=== PATIENT | male | born 1945 | race Caucasian/White ===

== ENCOUNTER 2018-09-02 16:42 | Emergency (ER) | payer SELFPAY ==
[~2018-09-02] VITALS: Ht 165.1 cm; Wt 90.0 kg
[2018-09-02 20:44] VITALS: BP 140/74
== END 2018-09-02 20:46 | disposition home or self-care (01) ==
LOC: ER 16:42
DX: S00.03XA Contusion of scalp, initial encounter (principal); F10.129 Alcohol abuse with intoxication, unspecified; E11.9 Type 2 diabetes mellitus without complications; W18.39XA Other fall on same level, initial encounter; Y93.89 Activity, other specified; Y92.89 Other specified places as the place of occurrence of the external cause; Y99.8 Other external cause status; Y90.9 Presence of alcohol in blood, level not specified
CPT/HCPCS: 99284

== ENCOUNTER 2019-02-04 11:24 | Inpatient (IN) | payer OTHER, MEDICAID ==
[~2019-02-04] VITALS: Ht 172.7 cm; Wt 82.3 kg
[2019-02-04] MEDS ORDERED: SODIUM CHLORIDE 0.9% 1,000 ML IV ONE ×2 (12:08→15:46)
[2019-02-04 12:09] LABS: BASOPHILS % 0.4 % (0.0-2.0); EOSINOPHILS % 0.2 % (0.0-5.0); HEMATOCRIT. 49.1 % (42.0-52.0); HEMOGLOBIN. 16.9 g/dL (14.0-18.0); LYMPHOCYTES % 21.8 % (20.0-50.0); MEAN CORPUSCULAR HEMOGLOBIN 32.2 pg (28.0-32.0); MEAN CORPUSCULAR VOLUME 93.4 fL (80.0-94.0); MEAN PLATELET VOLUME 8.3 fl (7.4-10.4); MONOCYTES % 5.8 % (2.0-8.0); NEUTROPHILS % 71.8 % (40.0-76.0); PLATELET 206 x1000/uL (130-400); RED BLOOD CELL COUNT 5.26 mill/uL (4.7-6.1); RED CELL DISTRIBUTION WIDTH 13.4 % (11.6-14.6)
[2019-02-04 12:15] LABS: CHLORIDE 104 mEq/L (98-107)
[2019-02-04] MEDS ORDERED: FAMOTIDINE 20MG/2ML VIAL IV ONE (12:15)
[2019-02-04] MEDS ORDERED: ONDANSETRON HCL 4MG/2ML INJ IV ONE (12:15)
[2019-02-04 12:19] LABS: ETHANOL BLOOD 82 mg/dL
[2019-02-04 12:20] LABS: INR 1.1; PROTHROMBIN TIME 11.3 sec (9.6-11.0)
[2019-02-04 12:44] LABS: CLARITY URINE CLEAR (CLEAR); COLOR URINE DARK YELLOW (YELLOW); KETONES URINE 2+ (NEGATIVE); LEUKOCYTE ESTERASE URINE TRACE (NEGATIVE); NITRITE URINE NEGATIVE (NEGATIVE); OCCULT BLOOD URINE 1+ (NEGATIVE); PROTEIN URINE 2+ (NEGATIVE); SPECIFIC GRAVITY URINE 1.024 (1.005-1.030)
[2019-02-04 13:16] LABS: *AMPHETAMINES SCREEN URINE NEGATIVE (NEGATIVE); CANNABINOID URINE SCREEN NEGATIVE (NEGATIVE); METHADONE URINE SCREEN NEGATIVE (NEGATIVE); OPIATES URINE SCREEN NEGATIVE (NEGATIVE); PHENCYCLIDINE URINE SCREEN NEGATIVE (NEGATIVE)
[2019-02-04 13:17] LABS: *BARBITURATES SCREEN URINE NEGATIVE (NEGATIVE); *BENZODIAZEPINES SCREEN URINE NEGATIVE (NEGATIVE); *COCAINE SCREEN URINE NEGATIVE (NEGATIVE)
[2019-02-04 16:23] LABS: CREATINE KINASE 118 IU/L (39-308)
[2019-02-04 16:24] LABS: CREATINE KINASE MB FRACTION 2.9 ng/mL (0.5-3.6)
[2019-02-04] MEDS ORDERED: METRONIDAZOLE 500 MG PREMIX 100 ML IV ONE (17:00)
[2019-02-04] MEDS ORDERED: LEVOFLOXACIN 500MG PREMIX 100 ML IV ONE (17:00)
[2019-02-04] MEDS ORDERED: LORAZEPAM 2MG/ML CPJ IV ONE ×2 (17:30→17:45)
[2019-02-04] MEDS ORDERED: ACETAMINOPHEN 325MG TABLET PO PRN (17:45)
[2019-02-04] MEDS ORDERED: GUAIFENESIN 200MG/10ML SUGAR FREE UDC PO PRN (17:45)
[2019-02-04] MEDS ORDERED: HYDROCODONE/ACETAMINOPHEN 5/325MG TABLET PO PRN (17:45)
[2019-02-04] MEDS ORDERED: ACETAMINOPHEN 650MG SUPP PR PRN (17:45)
[2019-02-04] MEDS ORDERED: DOCUSATE SODIUM 100MG CAPSULE PO PRN (17:45)
[2019-02-04] MEDS ORDERED: ONDANSETRON HCL 4MG/2ML INJ IV PRN (17:45)
[2019-02-04] MEDS ORDERED: HYDRALAZINE 20MG/ML VIAL IV ONE (17:45)
[2019-02-04] MEDS ORDERED: MAGNESIUM/ALUMINUM HYDROXIDE/SIMETHICONE 30ML UDC PO PRN (17:45)
[2019-02-04] MEDS ORDERED: METOPROLOL TARTRATE 50MG TABLET PO NR (17:45)
[2019-02-04] MEDS ORDERED: IPRATROPIUM/ALBUTEROL 0.5-3(2.5)MG/3ML NEB INH PRN (17:45)
[2019-02-04] MEDS ORDERED: METOPROLOL TARTRATE 25MG TABLET PO NR (17:45)
[2019-02-04] MEDS ORDERED: SODIUM CHLORIDE 0.45% 1,000 ML IV SCH (17:45)
[2019-02-04] MEDS ORDERED: DIPHENHYDRAMINE 50MG/ML VIAL IV PRN (17:45)
[2019-02-04] MEDS ORDERED: DEXTROSE 50% WATER 50ML SYRINGE IV PRN (18:00)
[2019-02-04] MEDS: METRONIDAZOLE 500 MG PREMIX 100 ML IV SCH (19:00)
[2019-02-04 19:21] LABS: HEPATITIS B SURFACE ANTIGEN NEGATIVE
[2019-02-04 19:51] LABS: HEPATITIS A AB IGM NEGATIVE (NEGATIVE)
[2019-02-04] MEDS ORDERED: LEVOFLOXACIN 500MG PREMIX 100 ML IV SCH (20:00)
[2019-02-04] MEDS ORDERED: NA PHOS,M-B/NA PHOS,DI-BA ENEMA 118ML PR PRN (21:00)
[2019-02-04 22:30] VITALS: BP 140/74
[2019-02-04] MEDS: BLOOD SUGAR DIAGNOSTIC STRIP TEST SCH (23:15)
[2019-02-04] MEDS: CHLORDIAZEPOXIDE 25MG CAPSULE PO SCH (23:16)
[2019-02-04] MEDS: INSULIN LISPRO 100 UNITS/ML SUBCUT SCH (23:16)
[2019-02-04] MEDS: FAMOTIDINE 20MG/2ML VIAL IV SCH (23:23)
[2019-02-05] VITALS: BP 156/86
[2019-02-05] MEDS: MVI, ADULT NO.1 10 ML, FOLIC ACID 1 MG, THIAMINE HCL 100 MG in SODIUM CHLORIDE 0.45% 1,... IV SCH ×4 (00:27)
[2019-02-05] MEDS: METRONIDAZOLE 500 MG PREMIX 100 ML IV SCH ×3 (01:26→21:00)
[2019-02-05 04:00] VITALS: BP 145/94
[2019-02-05] MEDS: CHLORDIAZEPOXIDE 25MG CAPSULE PO SCH ×3 (05:59→23:44)
[2019-02-05] MEDS: BLOOD SUGAR DIAGNOSTIC STRIP TEST SCH ×4 (06:04→21:00)
[2019-02-05] MEDS: INSULIN LISPRO 100 UNITS/ML SUBCUT SCH ×4 (06:15→23:13)
[2019-02-05 06:19] LABS: BASOPHILS % 0.2 % (0.0-2.0); EOSINOPHILS % 0.7 % (0.0-5.0); HEMATOCRIT. 42.3 % (42.0-52.0); HEMOGLOBIN. 14.9 g/dL (14.0-18.0); LYMPHOCYTES % 30.9 % (20.0-50.0); MEAN CORPUSCULAR HEMOGLOBIN 32.6 pg (28.0-32.0); MEAN CORPUSCULAR VOLUME 92.3 fL (80.0-94.0); MEAN PLATELET VOLUME 8.2 fl (7.4-10.4); MONOCYTES % 6.7 % (2.0-8.0); NEUTROPHILS % 61.5 % (40.0-76.0); PLATELET 136 x1000/uL (130-400); RED BLOOD CELL COUNT 4.58 mill/uL (4.7-6.1); RED CELL DISTRIBUTION WIDTH 13.4 % (11.6-14.6)
[2019-02-05 06:40] LABS: CHLORIDE 104 mEq/L (98-107)
[2019-02-05 06:53] LABS: T4 FREE 1.48 ng/dL (0.76-1.46)
[2019-02-05 06:54] LABS: HDL CHOLESTEROL 39 mg/dL (40-59)
[2019-02-05 06:55] LABS: LDL CHOLESTEROL 72 mg/dL (5-100)
[2019-02-05 08:00] VITALS: BP 157/93
[2019-02-05] MEDS: CLONIDINE 0.1MG TABLET PO PRN (10:04)
[2019-02-05] MEDS: FAMOTIDINE 20MG/2ML VIAL IV SCH ×2 (10:04→23:44)
[2019-02-05] MEDS: ENOXAPARIN 40MG/0.4ML SYR SUBCUT SCH (10:11)
[2019-02-05 12:00] VITALS: BP 131/89
[2019-02-05 16:00] VITALS: BP 127/85
[2019-02-05 20:00] VITALS: BP 136/86
[2019-02-05] MEDS ORDERED: LEVOFLOXACIN 500MG PREMIX 100 ML IV SCH (21:00)
[2019-02-05] MEDS: SODIUM CHLORIDE 0.45% 1000ML IV SCH (23:44)
[2019-02-06] VITALS (7 sets, daily range): BP systolic 120–155; BP diastolic 78–100
[2019-02-06] MEDS: MVI, ADULT NO.1 10 ML, FOLIC ACID 1 MG, THIAMINE HCL 100 MG in SODIUM CHLORIDE 0.45% 1,... IV SCH ×4
[2019-02-06] MEDS: LEVOFLOXACIN 500MG PREMIX 100 ML IV SCH (01:25)
[2019-02-06] MEDS: SODIUM CHLORIDE 0.45% 1000ML IV SCH ×2 (02:20→16:03)
[2019-02-06] MEDS: METRONIDAZOLE 500 MG PREMIX 100 ML IV SCH ×3 (04:52→20:15)
[2019-02-06] MEDS: CHLORDIAZEPOXIDE 25MG CAPSULE PO SCH ×3 (06:13→21:21)
[2019-02-06] MEDS: BLOOD SUGAR DIAGNOSTIC STRIP TEST SCH ×4 (06:16→20:16)
[2019-02-06] MEDS: INSULIN LISPRO 100 UNITS/ML SUBCUT SCH ×4 (06:26→20:16)
[2019-02-06 06:39] LABS: HEMOGLOBIN 14.3 g/dL (14.0-18.0); MEAN CORPUSCULAR HEMOGLOBIN 31.8 pg (28.0-32.0); MEAN CORPUSCULAR VOLUME 93.4 fL (80.0-94.0); PLATELET 111 x1000/uL (130-400); RED BLOOD CELL COUNT 4.49 mill/uL (4.7-6.1); RED CELL DISTRIBUTION WIDTH 13.4 % (11.6-14.6)
[2019-02-06 07:34] LABS: CHLORIDE 104 mEq/L (98-107)
[2019-02-06] MEDS: FAMOTIDINE 20MG/2ML VIAL IV SCH ×2 (08:59→20:16)
[2019-02-06] MEDS: ENOXAPARIN 40MG/0.4ML SYR SUBCUT SCH (08:59)
[2019-02-06] MEDS: CLONIDINE 0.1MG TABLET PO PRN (21:22)
[2019-02-07] VITALS: BP 137/88
[2019-02-07] MEDS: LEVOFLOXACIN 500MG PREMIX 100 ML IV SCH (01:03)
[2019-02-07] MEDS: MVI, ADULT NO.1 10 ML, FOLIC ACID 1 MG, THIAMINE HCL 100 MG in SODIUM CHLORIDE 0.45% 1,... IV SCH ×4 (02:10)
[2019-02-07 04:00] VITALS: BP 144/88
[2019-02-07] MEDS: METRONIDAZOLE 500 MG PREMIX 100 ML IV SCH (04:53)
[2019-02-07] MEDS: BLOOD SUGAR DIAGNOSTIC STRIP TEST SCH (06:39)
[2019-02-07] MEDS: CHLORDIAZEPOXIDE 25MG CAPSULE PO SCH (06:40)
[2019-02-07] MEDS: INSULIN LISPRO 100 UNITS/ML SUBCUT SCH (06:40)
[2019-02-07] MEDS: FAMOTIDINE 20MG/2ML VIAL IV SCH (09:37)
[2019-02-07 09:39] VITALS: BP 132/90
== END 2019-02-07 09:56 | disposition home or self-care (01) | DRG 391 ==
LOC: ER 11:24 → 5WST 16:55 → ENRESERV 20:36
PROVIDERS: ADMIT Internal Medicine; ATTEND Internal Medicine
DX: K29.20 Alcoholic gastritis without bleeding (principal); I50.33 Acute on chronic diastolic (congestive) heart failure; G93.40 Encephalopathy, unspecified; N39.0 Urinary tract infection, site not specified; K74.60 Unspecified cirrhosis of liver; K29.80 Duodenitis without bleeding; E11.65 Type 2 diabetes mellitus with hyperglycemia; E86.0 Dehydration; I10 Essential (primary) hypertension; K80.20 Calculus of gallbladder without cholecystitis without obstruction; I11.0 Hypertensive heart disease with heart failure; B96.89 Other specified bacterial agents as the cause of diseases classified elsewhere; R80.9 Proteinuria, unspecified; Z72.89 Other problems related to lifestyle; Z71.41 Alcohol abuse counseling and surveillance of alcoholic
CPT/HCPCS: 36415; 71045; 74176; 76700; 80061; 80305; 80320; 82140; 82270; 82550; 82553; 82962; 83036; 84439; 84443; 84484; 85027; 86705; 86709; 86803; 87015; 87045; 87077; 87186; 87340; 87427; 87449; 87493; 93005; 93306; 93970; 96374; 96375; 99285; A4565; J1650; J1815; J1956; J2060; J2405; J3411; J3490; J7030; J7040; G0480